=== PATIENT | female | born 1940 | race Caucasian/White ===

== ENCOUNTER 2023-04-05 10:47 | Emergency (ER) | payer MEDICARE, SELFPAY ==
--- NOTE | ~2023-04-05 | XR_ITS ---
EXAMINATION: XR chest 2V DATE: 04/05/2023 11:11 INDICATION: Cough. Chest discomfort. TECHNIQUE: Frontal and lateral views of the chest were obtained. COMPARISON: Chest 2 views 11/03/2014 FINDINGS: Calcified pulmonary nodules and calcified hilar lymph nodes are consistent with old granulo matous disease. There is mild scarring at right lung apex. There is mild atelectasis in lingula. No p leural effusion or pneumothorax. The heart size is normal. IMPRESSION: 1. Stable mild scarring at right lung apex and mild atelectasis in lingula. Reviewed, dictated and finalized at location A.
--- NOTE | 2023-04-05 10:48 | ED.URI ---
HPI - URI/Sore Throat General Chief Complaint: Upper Respiratory Infection Stated Complaint: Runny Nose,Cough Time Seen by Provider: 04/05/23 10:48 Source: patient Mode of arrival: ambulatory Limitations: no limitations History of Present Illness HPI Narrative: Ms. Raman is an 82 year old female patient presenting to clinic today with complaints of runny nose, nasal congestion and sinus pressure x3 weeks. Has had a cough for the last 3 days. She reports no known fever or chills. No known exposure to anyone with COVID, flu, or strep MD elicited complaint: cough, rhinorrhea, nasal congestion and sinus pain Related Data Home Medications Medication Instructions Recorded Confirmed amlodipine 2.5 mg tablet 2.5 mg PO DAILY 04/05/23 04/05/23 Allergies Allergy/AdvReac Type Severity Reaction Status Date / Time No Known Allergies Allergy Verified 04/05/23 11:00 Review of Systems Review of Systems: Pertinent positives per HPI. Patient denies any fever, chills, rash, headache, visual changes, dizziness, cough, shortness of breath, chest pain, palpitations, nausea, vomiting, diarrhea, constipation, abdominal pain, or any urinary issues. PMFSH Comments At the time of my signature, I reviewed and agree with the nursing past medical, surgical, social, and family history. There is no relevant family history pertinent to the patient complaint. Exam Narrative: General: Well-developed, well nourished, in no apparent distress Head: Normocephalic, atraumatic Eyes: Pupils equally round and reactive to light bilaterally, EOM intact, sclera and conjunctive clear, no discharge, lids normal Ears: TMs intact and congested, ear canals clear, no drainage, grossly hearing normal. Nose: Nares patent, yellow nasal discharge, moderate inflammation, right-sided maxillary and frontal sinus tenderness. Mouth: Oral pharynx without lesions or masses, good dentition, MMM. Postnasal drip Neck: Supple, trachea midline, no enlargement of anterior or posterior cervical nodes, no thyroid masses or goiter palpable. Cardio: Regular rate and rhythm, s1 and s2 normal, no murmur appreciated. Resp: Clear to auscultation bilaterally, no rhonchi, rales, wheezing or rubs Course Course Emergency Course: Portions of this record may have been created with voice recognition software. Level of Care: Express Care Visit Vital Signs Vital signs: Vital signs reviewed MDM - URI/Sore Throat MDM Narrative Medical decision making narrative: At the time of visit patient is resting on the exam table. Chest x-ray was performed and was negative for any sign of pneumonia. I suspect patient has acute bacterial rhinosinusitis. Prescription for Augmentin and prednisone was sent to pharmacy and supportive measures were discussed with the patient she voiced understanding of discharge instructions and agrees to treatment plan Differential Diagnosis Differential diagnosis: Likely upper respiratory infection, otitis media, sinusitis, viral infection, bronchitis, influenza, pharyngitis and other (COVID) Imaging Data Radiologist's impression: [address] [address] XRay Report Signed Patient: Nona Raman : 1940 MR#: [id number] Age/Sex: 82 / F Acct:[id number] Loc: [facility]? ? ADM Date: 04/05/23Attending Dr: Ordering Physician: Juan Lopez APRN Date of Service: 04/05/23 Procedure(s): XR chest 2V Accession Number(s): [id number] cc: Juan Lopez APRN; Cameron Olivas~ EXAMINATION: XR chest 2V DATE: 04/05/2023 11:11 INDICATION: Cough. Chest discomfort. TECHNIQUE: Frontal and lateral views of the chest were obtained. COMPARISON: Chest 2 views 11/03/2014 FINDINGS: Calcified pulmonary nodules and calcified hilar lymph nodes are consistent with old granulomatous disease. There is mild scarring at right lung apex. There is mild atelectasis in lingul
[2023-04-05 11:00] VITALS: BP 164/65; PULSE 76; RESP 18; TEMP 36.9; O2SAT 97
[2023-04-05 11:01] VITALS: BP 164/65; PULSE 76; RESP 18; TEMP 36.9; O2SAT 97
== END 2023-04-05 11:25 | disposition home or self-care (01) ==
LOC: EXPTROY 10:53
PROVIDERS: Emergency Provider Nurse Practitioner Family
DX: J01.90 Acute sinusitis, unspecified (principal); I10 Essential (primary) hypertension
CPT/HCPCS: 71046; 99213; G0463